=== PATIENT | female | born 1970 | race Two or more races ===

== ENCOUNTER 2017-05-30 14:44 | Emergency (ER) | END 2017-05-30 19:40 | disposition home or self-care (01) | DX: R10.13 Epigastric pain (principal); K21.9 Gastro-esophageal reflux disease without esophagitis | CPT/HCPCS: 36415; 76705; 80053; 81003; 83690; 85025; J2405; Z7502; Z7610 ==

== ENCOUNTER 2017-12-09 18:28 | Emergency (ER) | END 2017-12-09 19:08 | disposition home or self-care (01) ==

== ENCOUNTER 2018-07-25 13:57 | Emergency (ER) | END 2018-07-25 17:40 | disposition home or self-care (01) ==

== ENCOUNTER 2018-11-27 14:25 | Emergency (ER) | payer OTHER ==
[~2018-11-27] VITALS: Wt 58.6 kg
[~2018-11-27 14:25] MED LIST: DIPH1TAB PO; IBUP-1542 PO; OMEP20CA16 PO
[2018-11-27 14:30] VITALS: BP 108/51; PULSE 91; RESP 18
--- NOTE | 2018-11-27 16:21 | ERD ---
ER Documentation Chief Complaint Chief Complaint LEFT EAR PAIN HPI 48-year-old female previously healthy presenting with left ear pain for the past 3 days. She states that the pain is mostly behind her left ear. She describes it as aching, inflamed, radiating into her left neck. No neck stiffness. No fevers or chills. She has had URI symptoms of nasal congestion and cough for the past 1 week. No hearing disturbance. No vomiting or nausea. Mild headaches only. No vision disturbance, dizziness, focal weakness or numbness. ROS All systems reviewed and are negative except as per history of present illness. Medications Home Meds Active Scripts Ibuprofen* (Motrin*) 600 Mg Tab, 600 MG PO Q6H PRN for PAIN AND OR ELEVATED TEMP, #30 TAB Prov:AMIRA THOMAS MD 07/25/18 Diphenoxylate HCl/Atropine (Lomotil 2.5-0.025 mg Tablet) 1 Each Tablet, 1 TAB PO QID PRN for DIARRHEA, #10 TAB Prov:AMIRA THOMAS MD 07/25/18 Reported Medications Omeprazole* (Omeprazole*) 20 Mg Capsule.dr, 20 MG PO AC BREAKFAST, #30 CAP 07/25/18 Allergies Allergies: Coded Allergies: No Known Drug Allergies (Verified Allergy, Mild, 05/30/17) PMhx/Soc History of Surgery: Yes ( X1) Anesthesia Reaction: No Hx Neurological Disorder: No Hx Respiratory Disorders: No Hx Cardiac Disorders: No Hx Psychiatric Problems: No Hx Miscellaneous Medical Probl: No Hx Alcohol Use: No Hx Substance Use: No Hx Tobacco Use: No Smoking Status: Never smoker FmHx Family History: No diabetes Physical Exam Vitals Vital Signs Date Temp Pulse Resp B/P (MAP) Pulse Ox O2 O2 Flow FiO2 Time Delivery Rate 11/27/18 99.3 91 18 108/51 99 14:30 (70) Physical Exam Const: No acute distress Head: Atraumatic Eyes: Normal Conjunctiva, PERRLA ENT: TMs normal bilaterally. External canals normal bilaterally. Left posterior auricular lymph node swelling, tender to palpation. Posterior oropharynx normal without erythema or exudate. No mastoid tenderness. No erythema over her mastoid. Neck: Full range of motion. No meningismus. Resp: Clear to auscultation bilaterally Cardio: Regular rate and rhythm, no murmurs Neur: Awake and alert, normal speech, no facial asymmetry Psych: Normal Mood and Affect Procedures/MDM Patient is presenting with left earache. Vitals are unremarkable. She actually has a little lymph node that is swollen behind her left ear which is likely c ausing her pain. There is no evidence of OM or OE. Do not suspect meningitis or cervical artery pathology. Supportive care discussed. Decongestants recommended for her nasal congestion. Return precautions given. Follow-up with PCP was recommended of her lymphadenopathy does not improve after her URI symptoms have improved. Departure Diagnosis: Primary Impression: Postauricular lymphadenopathy Additional Impression: URI, acute Condition: Stable Patient Instructions: When Your Child Has Swollen Lymph Nodes, Uri, Viral, No Abx (Adult) Additional Instructions: Compra Claritin-D de la farmacia para penaloza congestion. FORD MANZO MD Nov 27, 2018 16:21
== END 2018-11-27 16:38 | disposition home or self-care (01) ==
LOC: FTE 14:25
DX: J06.9 Acute upper respiratory infection, unspecified (principal); R59.0 Localized enlarged lymph nodes
CPT/HCPCS: 99282

== ENCOUNTER 2019-03-22 18:09 | Emergency (ER) | payer OTHER ==
[~2019-03-22] VITALS: Ht 162.6 cm; Wt 59.7 kg
[~2019-03-22 18:09] MED LIST changes: +NAPR-985 PO
[2019-03-22 18:26] VITALS: Ht 162.6 cm; Wt 59.7 kg
[2019-03-22] MEDS ORDERED: KETOROLAC 30 MG INJ IM STA (19:02)
[2019-03-22] MEDS ORDERED: DIPHENHYDRAMINE 50 MG CAP PO ONE (19:30)
[2019-03-22 19:54] VITALS: BP 106/64; PULSE 77; RESP 18
--- NOTE | 2019-03-28 14:11 | ERD ---
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 HPI This is a 48-year-old female presenting to the emergency department complaining of left headache and facial pain for the past 3 days. She is also had left eye twitching. Symptoms are intermittent and 8/10 severity. She denies any expressive aphasia, unilateral weakness, fevers, chills, or other symptoms at this time. She does have history of migraines in the past. ROS All systems reviewed and are negative except as per history of present illness. Medications Home Meds Active Scripts Naproxen* (Naprosyn*) 500 Mg Tablet, 500 MG PO BID PRN for PAIN AND/OR INFLAMMATION, #30 TAB Prov:SARAH GANN PA-C 03/22/19 Ibuprofen* (Motrin*) 600 Mg Tab, 600 MG PO Q6H PRN for PAIN AND OR ELEVATED TEMP, #30 TAB Prov:AMIRA THOMAS MD 07/25/18 Diphenoxylate HCl/Atropine (Lomotil 2.5-0.025 mg Tablet) 1 Each Tablet, 1 TAB PO QID PRN for DIARRHEA, #10 TAB Prov:AMIRA THOMAS MD 07/25/18 Reported Medications Omeprazole* (Omeprazole*) 20 Mg Capsule.dr, 20 MG PO AC BREAKFAST, #30 CAP 07/25/18 Allergies Allergies: Coded Allergies: No Known Drug Allergies (Verified Allergy, Mild, 05/30/17) PMhx/Soc History of Surgery: Yes ( X1) Anesthesia Reaction: No Hx Neurological Disorder: No Hx Respiratory Disorders: No Hx Cardiac Disorders: No Hx Psychiatric Problems: No Hx Miscellaneous Medical Probl: No Hx Alcohol Use: No Hx Substance Use: No Hx Tobacco Use: No Smoking Status: Never smoker FmHx Family History: No diabetes Physical Exam Physical Exam Const: No acute distress Head: Atraumatic Eyes: Normal Conjunctiva ENT: Normal External Ears, Nose and Mouth. Neck: Full range of motion. No meningismus. Resp: Clear to auscultation bilaterally Cardio: Regular rate and rhythm, no murmurs Abd: Soft, non tender, non distended. Normal bowel sounds Skin: No petechiae or rashes Back: No midline or flank tenderness Ext: No cyanosis, or edema Neuro: M/S: Alert and oriented Face: EOMI, face and pharynx with normal sensation and function Motor: Normal strength throughout Sensation: Normal sensation throughout Speech: Normal Cerebel: Normal coordination Normal gait Normal finger to nose Psych: Normal Mood and Affect Results 24 hrs Laboratory Tests Test 03/22/19 19:21 POC Beta HCG, Qualitative NEGATIVE Current Medications Medications Dose Sig/Elliot Start Time Status Last (Trade) Ordered Route PRN Stop Time Admin Dose Reason Admin Ketorolac 30 mg ONCE STAT 03/22/19 DC 03/22/19 Tromethamine IM 19:02 19:22 (Toradol) 03/22/19 19:04 50 mg ONCE ONCE 03/22/19 DC 03/22/19 Diphenhydrami PO 19:30 19:23 ne HCl 03/22/19 19:31 (Benadryl) Procedures/MDM Patient is a 48-year-old female presenting to the emergency department with complaints of headache. Differential diagnoses include meningitis, intracranial hemorrhage, subarachnoid hemorrhage, CVA, TIA, tension headache, migraine, cluster headache, and others. I doubt any life threatening etiology at this time. [CT scan of the head was not indicated at this time as presentation and exam was not concerning for acute intracranial emergencies. Patient improved in the department after treatment with medication. Pt is to follow-up with primary care physician and return here immediately for any new or worsening symptoms. Departure Diagnosis: Primary Impression: Headache Condition: Fair Patient Instructions: Self-Care for Headaches Additional Instructions: Llame al doctor JOAQUIN y aruna luis ZANE PARA DENTRO DE 1-2 HOGAN.Dgale a la secretaria que nosotros le instruimos hacer esta zane.Avise o llame si penaloza condicin se empeora antes de la zane. Regresa aqui si peor o no mejor. SARAH GANN PA-C Mar 28, 2019 14:11
== END 2019-03-22 19:56 | disposition home or self-care (01) ==
LOC: FTE 18:09
DX: R51 Headache (principal)
CPT/HCPCS: 81025; 96372; J1885; Z7502; Z7610